=== PATIENT | female | born 1935 | race Hispanic/Latino ===

== ENCOUNTER 2016-11-30 11:15 | Outpatient (CLI) | payer MEDICARE ==
--- NOTE | 2016-11-30 11:47 | XRay Report ---
ROUTINE CHEST, TWO VIEWS: HISTORY: Palpitations, atrial fibrillation and flutter. Chronic right pleural thickening versus small right pleural effusion is identified. I favor chronic pleural thickening. Otherwise, the lungs are generally clear. No evidence for pneumonia or mass. Heart size and pulmonary vascularity are within normal limits. The bony thorax is unremarkable. IMPRESSION: Chronic right pleural thickening versus small right pleural effusion. No acute cardiopulmonary process appreciated.
== END 2016-11-30 11:16 | disposition home or self-care (01) ==
LOC: SPVIMAG 11:15
PROVIDERS: ATTEND Nurse Practitioner
DX: I48.91 Unspecified atrial fibrillation (principal); J90 Pleural effusion, not elsewhere classified
CPT/HCPCS: 71020